=== PATIENT | male | born 1950 | race Caucasian/White ===

== ENCOUNTER 2017-10-09 22:00 | Emergency (ER) | payer MEDICARE ==
[~2017-10-09] VITALS: Ht 170.2 cm; Wt 95.0 kg
[~2017-10-09 22:00] MED LIST: ALBU8I INH; FURO20 PO; METF500 PO; PERC5TAB12 PO; SERO100T PO
[2017-10-09 22:03] VITALS: BP 166/74; PULSE 90; RESP 19; TEMP 97.9; O2SAT 97
[2017-10-09] MEDS ORDERED: NYST15T TOPICAL (22:24)
--- NOTE | 2017-10-09 22:25 | PD ---
HPI Chief Complaint: Complaint Time Seen by Provider: 22:11 Travel History International Travel<30 days: No Contact w/Intl Traveler<30days: No Traveled to known affect area: No History of Present Illness HPI Patient is a 67-year-old male recently moved to [place]. Homeless, presents emergency department for evaluation chiefly for a place to stay. Patient states she's also been having some irritation on his penis. He states his leg has been somewhat swollen but this is chronic for him. Denies any chest pain shortness of breath abdominal pain nausea vomiting. States that he was headed towards a hotel today changing rooms but could not get to the Hotel so he decided to walk here instead. He also does have a history of injury to his left foot but cannot expand further and is in a cast shoe. He states his leg has been swollen since before his long trip. PFSH Past Medical History Asthma: Yes Cardiovascular Problems: Yes Congestive Heart Failure: Yes Diabetes: Yes Diminished Hearing: No Musculoskeletal: Yes (BILATERAL LOWER LEG EDEMA) Respiratory: Yes (BRONCHITIS) Past Surgical History Abdominal Surgery: Yes (HERNIA REPAIR) Social History Alcohol Use: No Tobacco Use: Yes (1 PPD) Substance Use: No Allergies-Medications (Allergen,Severity, Reaction): Coded Allergies: cephalexin (Unverified Allergy, Severe, UPSET STOMACH, 10/09/17) Reported Meds & Prescriptions Reported Meds & Active Scripts Active Nystatin Topical (Nystatin) 100,000 unit/gm Cream 1 Applic TOPICAL BID Reported Lasix (Furosemide) 20 Mg Tab 20 Mg PO DAILY Metformin (Metformin HCl) 500 Mg Tab 500 Mg PO BIDPC Review of Systems Except as stated in HPI: all other systems reviewed are Neg Physical Exam Narrative GENERAL: Well-developed, well-nourished disheveled male in no obvious distress. SKIN: Focused skin assessment warm/dry. HEAD: Atraumatic. Normocephalic. EYES: Pupils equal and round. No scleral icterus. No injection or drainage. ENT: No nasal bleeding or discharge. Mucous membranes pink and moist. NECK: Trachea midline. No JVD. CARDIOVASCULAR: Regular rate and rhythm. No murmur appreciated. RESPIRATORY: No accessory muscle use. Clear to auscultation. Breath sounds equal bilaterally. GASTROINTESTINAL: Abdomen soft, non-tender, nondistended. Hepatic and splenic margins not palpable. GENITOURINARY: Uncircumcised, a small amount of smegma and some rash on the glans penis when the foreskin is retracted, consistent with a balanitis. MUSCULOSKELETAL: No obvious deformities. No clubbing. No cyanosis. There is some mild edema to the left lower extremity cashews in place. No tenderness, Homans sign negative. NEUROLOGICAL: Awake and alert. No obvious cranial nerve deficits. Motor grossly within normal limits. Normal speech. PSYCHIATRIC: Appropriate mood and affect; insight and judgment normal. Data Data Last Documented VS Vital Signs Date Time Temp Pulse Resp B/P (MAP) Pulse Ox O2 Delivery O2 Flow Rate FiO2 10/09/17 23:01 88 18 97 10/09/17 22:46 Room Air 10/09/17 22:03 97.9 Orders Orders Nystatin Cream (Mycostatin Cream) (10/09/17 22:30) Ibuprofen (Motrin) (10/09/17 22:30) Ed Discharge Order (10/09/17 22:25) MDM Medical Decision Making Medical Screen Exam Complete: Yes Emergency Medical Condition: Yes Differential Diagnosis Balanitis, chronic lymphedema, DVT considered and seems unlikely, poor social circumstance, homelessness. Narrative Course Patient roomed in emergency department, he appears disheveled but nontoxic, is no indication further workup at this time. He is stable for discharge. Diagnosis Primary Impression: Balanitis Additional Impressions: Lymphedema Homelessness Med/Other Pt SpecificInfo: Prescription(s) given Scripts Nystatin Topical (Nystatin Topical) 100,000 unit/gm Cream 1 APPLIC TOPICAL BID for Infection, #15 GM 0 Refills Prov: Lowell Early MD 10/09/17 Disposition: 01 DISCHARGE HOME Condition: Stable Lowell Early MD Oct 09, 2017 22:25
[2017-10-09] MEDS ORDERED: NYSTATIN 100,000 UNIT/GM CREAM 15 GM TOPICAL ONE (22:30)
[2017-10-09] MEDS ORDERED: IBUPROFEN 600 MG TAB PO ONE (22:30)
[2017-10-09] MEDS ORDERED: FURO1TAB62 PO (22:44)
[2017-10-09] MEDS ORDERED: METF500T PO (22:44)
[2017-10-09 22:46] VITALS: BP 156/74; PULSE 84; RESP 18; O2SAT 97
== END 2017-10-09 23:02 | disposition home or self-care (01) ==
LOC: PHED 22:00
DX: N48.1 Balanitis (principal); I89.0 Lymphedema, not elsewhere classified; Z59.0 Homelessness; J45.909 Unspecified asthma, uncomplicated; I50.9 Heart failure, unspecified; E11.9 Type 2 diabetes mellitus without complications; F17.210 Nicotine dependence, cigarettes, uncomplicated; Z88.8 Allergy status to other drugs, medicaments and biological substances; Z79.84 Long term (current) use of oral hypoglycemic drugs; Z79.899 Other long term (current) drug therapy
CPT/HCPCS: 99282